=== PATIENT | male | born 1995 | race African-American/Black ===

== ENCOUNTER 2017-09-05 15:23 | Emergency (ER) | payer SELFPAY | END 2017-09-05 16:16 | disposition home or self-care (01) | LOC: MADERS 15:23 | DX: S33.5XXA Sprain of ligaments of lumbar spine, initial encounter (principal); S13.9XXA Sprain of joints and ligaments of unspecified parts of neck, initial encounter; S39.012A Strain of muscle, fascia and tendon of lower back, initial encounter; S16.1XXA Strain of muscle, fascia and tendon at neck level, initial encounter; F31.9 Bipolar disorder, unspecified; F20.9 Schizophrenia, unspecified; F17.210 Nicotine dependence, cigarettes, uncomplicated; W17.89XA Other fall from one level to another, initial encounter | CPT/HCPCS: 99283 ==